=== PATIENT | male | born 1985 | race Caucasian/White ===

== ENCOUNTER 2017-01-21 11:53 | Emergency (ER) | payer BC ==
[~2017-01-21] VITALS: Ht 188 cm; Wt 98.5 kg
[~2017-01-21 11:53] MED LIST: FLEXERIL10 MG PO; MOTRIN800 MG PO; ULTRAM50 MG PO
[2017-01-21] MEDS ORDERED: LEXAPRO20 MG PO (12:15)
[2017-01-21] MEDS ORDERED: PERCOCET 5/31 TABLET PO (15:28)
[2017-01-21] MEDS ORDERED: KEFLEX500 MG PO (15:28)
[2017-01-21 15:55] VITALS: BP 128/82
== END 2017-01-21 15:56 | disposition home or self-care (01) ==
LOC: EME 11:53
DX: S02.40DB Maxillary fracture, left side, initial encounter for open fracture (principal); S01.81XA Laceration without foreign body of other part of head, initial encounter; W22.8XXA Striking against or struck by other objects, initial encounter
CPT/HCPCS: 70486; 99281; 99284; J0690; J7050